=== PATIENT | male | born 1965 | race African-American/Black ===

== ENCOUNTER 2018-08-24 06:11 | Emergency (ER) | payer MEDICAID, OTHER ==
[~2018-08-24] VITALS: Ht 177.8 cm; Wt 77.1 kg
[2018-08-24 06:18] VITALS: BP 144/100
--- NOTE | 2018-08-24 07:06 | NUR ---
First contact with patient: Discharge instructions discussed with patient, verbalizes understanding. Prescriptions provided to patient with instruction for use. Patient ambulates with steady gait to discharge desk in no acute distress.
== END 2018-08-24 07:14 | disposition home or self-care (01) ==
LOC: ED 06:30
DX: S46.812A Strain of other muscles, fascia and tendons at shoulder and upper arm level, left arm, initial encounter (principal); Z76.0 Encounter for issue of repeat prescription; X58.XXXA Exposure to other specified factors, initial encounter; Y93.89 Activity, other specified; Y92.89 Other specified places as the place of occurrence of the external cause; Y99.8 Other external cause status
CPT/HCPCS: 99283

== ENCOUNTER 2018-08-25 04:11 | Emergency (ER) | payer MEDICAID, OTHER ==
[~2018-08-25] VITALS: Ht 177.8 cm; Wt 81.0 kg
[2018-08-25 04:14] VITALS: BP 154/78
[2018-08-25] MEDS ORDERED: LISINOPRIL 20 MG TABLET ONE (04:54)
--- NOTE | 2018-08-25 04:56 | NUR ---
PT MEDICATED PER JUN. PT STATING HE WANTS TO LEAVE AND WANTS A TAXI VOUCHER TO THE [facility].
[2018-08-25] MEDS ORDERED: LISINOPRIL 20 MG TABLET PO ONE (05:00)
--- NOTE | 2018-08-25 05:26 | NUR ---
PT D/C WITH D/C SUMMARY. ALL QUESTIONS ANSWERED. PT PROVIDED TAXI VOUCHER TO [facility]. PT WALKS TO REGISTRATION DESK WITH STEADY GAIT AND DENIES ANY OTHER NEEDS PERTAINING TO THIS VISIT.
== END 2018-08-25 05:29 | disposition home or self-care (01) ==
LOC: ED 05:00
DX: I10 Essential (primary) hypertension (principal); Z76.0 Encounter for issue of repeat prescription; Z59.0 Homelessness; F20.9 Schizophrenia, unspecified; F41.1 Generalized anxiety disorder; Z79.899 Other long term (current) drug therapy; F17.200 Nicotine dependence, unspecified, uncomplicated
CPT/HCPCS: 99283

== ENCOUNTER 2018-08-25 16:48 | Inpatient (IN) | payer MEDICAID, OTHER ==
[~2018-08-25] VITALS: Ht 175.3 cm; Wt 75.0 kg
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
[2018-08-25 17:30] LABS: BASOPHILS # (AUTO) 0.02 x10^3/uL (0-0.1); BASOPHILS % (AUTO) 0 % (0-1); EOSINOPHILS # (AUTO) 0.07 x10^3/uL (0-0.4); EOSINOPHILS % (AUTO) 1 % (1-7); LYMPHOCYTES # (AUTO) 2.15 x10^3/uL (1-3.4); LYMPHOCYTES % (AUTO) 31 % (22-44); MD NO; MEAN CORPUSCULAR HEMOGLOBIN 30.9 pg (27.5-34.5); MEAN CORPUSCULAR HGB CONC 34.4 g/dL (33.2-36.2); MEAN CORPUSCULAR VOLUME 89.8 fL (81-97); MEAN PLATELET VOLUME 7.7 fL (7.4-10.4); MONOCYTES # (AUTO) 0.96 x10^3/uL (0.2-0.8); MONOCYTES % (AUTO) 14 % (2-9); NEUTROPHILS # (AUTO) 3.65 x10^3/uL (1.8-6.8); NEUTROPHILS % (AUTO) 53 % (42-75); PLATELET COUNT 204 x10^3/uL (130-400); RED BLOOD COUNT 4.84 x10^6/uL (4.38-5.82)
[2018-08-25 17:41] LABS: ANION GAP 8 mmol/L (5-15); CALCIUM 9.5 mg/dL (8.5-10.1); CHLORIDE 108 mmol/L (98-107)
[2018-08-25 17:46] LABS: SALICYLATE LEVEL < 1.7 mg/dL (2.8-20.0)
[2018-08-25 17:52] LABS: ALANINE AMINOTRANSFERASE 58 U/L (12-78); ALKALINE PHOSPHATASE 89 U/L (45-117); BILIRUBIN,TOTAL 0.6 mg/dL (0.2-1.0); CREATININE 1.41 mg/dL (0.7-1.3); TOTAL PROTEIN 8.1 g/dL (6.4-8.2)
[2018-08-25 17:54] LABS: ACETAMINOPHEN < 2 mcg/mL (10-30)
[2018-08-25 18:04] LABS: AMPHETAMINE SCREEN, URINE Negative (Negative); BARBITURATE SCREEN, URINE Negative (Negative); BENZODIAZEPINE SCREEN, URINE Negative (Negative); CANNABINOID SCREEN, URINE Positive (Negative); COCAINE SCREEN, URINE Negative (Negative); METHADONE SCREEN, URINE Negative (Negative); OPIATE SCREEN, URINE Negative (Negative)
[2018-08-25 18:07] LABS: FREE T4 (FREE THYROXINE) 1.07 ng/dL (0.76-1.46)
--- NOTE | 2018-08-25 18:27 | NUR ---
Provided with meal tray. No other needs.
--- NOTE | 2018-08-25 19:35 | NUR ---
Resting in [facility]. No other needs.
[2018-08-25] MEDS ORDERED: TRAZODONE 50MG TABLET ONE (20:25)
[2018-08-25] MEDS: TRAZODONE 50MG TABLET PO SCH (20:28)
--- NOTE | 2018-08-25 20:31 | NUR ---
Per Audrey from [facility], patient was supposed to transfer from [facility] to [facility] via [facility] today. Neither facility reports knowing why the patient never made it to [facility]. Plan is tohopefully transfer patient to [facility] after they accept him.
--- NOTE | 2018-08-25 20:44 | NUR ---
[facility] CALLED. SPOKE TO KENDRA WHO STATES THAT SHE IS AWARE OF THIS PATIENT BUT NOT SPECIFICS. KENDRA TO MAKE SOME PHONE CALLS AND CALL US BACK WHEN SHE HAS AN ACCEPTING PHYSICIAN.
--- NOTE | 2018-08-25 21:00 | NUR ---
Baron at [facility] calls and states that he spoke with Sruthi at [facility] and she reviewed pt chart and noted that his hold was released there today and that [facility] was cancelled. Pt was released with resources.
--- NOTE | 2018-08-25 21:27 | NUR ---
REPORT FROM ZEINAB HAZEL. PT RESTING IN [facility] W/ EYES OPEN, CALMLY WATCHING TV. ROOM SECURE. NO PERSONAL BELONGINGS NOTED. SITTER PRESENT. POC IS [facility]/ACCEPTANCE.
--- NOTE | 2018-08-25 22:03 | NUR ---
2N RN AT BEDSIDE FOR ASSESSMENT. PT CALM AND COOPERATIVE WITH QUESTIONING
--- NOTE | 2018-08-25 22:19 | NUR ---
PT TRANSFERED TO BY WHEELCHAIR W/ TECHS X2
[2018-08-25 22:31] VITALS: BP 139/92
[2018-08-25 22:56] VITALS: BP 139/92
[2018-08-26 05:11] LABS: ANION GAP 6 mmol/L (5-15); CALCIUM 9.4 mg/dL (8.5-10.1); CHLORIDE 108 mmol/L (98-107); CREATININE 1.29 mg/dL (0.7-1.3)
[2018-08-26 05:12] LABS: BASOPHILS # (AUTO) 0.05 x10^3/uL (0-0.1); BASOPHILS % (AUTO) 1 % (0-1); EOSINOPHILS # (AUTO) 0.11 x10^3/uL (0-0.4); EOSINOPHILS % (AUTO) 2 % (1-7); LYMPHOCYTES # (AUTO) 3.28 x10^3/uL (1-3.4); LYMPHOCYTES % (AUTO) 49 % (22-44); MD NO; MEAN CORPUSCULAR HEMOGLOBIN 30.5 pg (27.5-34.5); MEAN CORPUSCULAR HGB CONC 33.8 g/dL (33.2-36.2); MEAN CORPUSCULAR VOLUME 90.2 fL (81-97); MEAN PLATELET VOLUME 7.9 fL (7.4-10.4); MONOCYTES # (AUTO) 0.79 x10^3/uL (0.2-0.8); MONOCYTES % (AUTO) 12 % (2-9); NEUTROPHILS # (AUTO) 2.41 x10^3/uL (1.8-6.8); NEUTROPHILS % (AUTO) 36 % (42-75); PLATELET COUNT 184 x10^3/uL (130-400); RED BLOOD COUNT 4.63 x10^6/uL (4.38-5.82); RED CELL DISTRIBUTION WIDTH 13.3 % (9.4-14.8)
[2018-08-26 05:14] LABS: HEMOGLOBIN A1C 5.6 % (4.2-6.3)
[2018-08-26 07:45] VITALS: BP 110/79
[2018-08-26] MEDS: LAMOTRIGINE 200 MG TABLET PO SCH (08:31)
[2018-08-26] MEDS: OLANZAPINE 10 MG TABLET PO SCH (08:31)
[2018-08-26] MEDS: LISINOPRIL 20 MG TABLET PO SCH (08:31)
[2018-08-26] MEDS ORDERED: MAGNESIUM HYDROXIDE 8%, 30ML UDC PO PRN (15:00)
[2018-08-26] MEDS: TRAZODONE 50MG TABLET PO SCH (23:09)
[2018-08-26] MEDS: LORazepam 1MG TABLET PO PRN (23:09)
[2018-08-26 23:11] VITALS: BP 114/75
[2018-08-27 07:00] VITALS: BP 117/75
[2018-08-27] MEDS: LAMOTRIGINE 200 MG TABLET PO SCH (08:12)
[2018-08-27] MEDS: OLANZAPINE 10 MG TABLET PO SCH (08:12)
[2018-08-27] MEDS: SENNA/DOCUSATE TABLET PO SCH (08:13)
[2018-08-27] MEDS: LISINOPRIL 20 MG TABLET PO SCH (08:13)
[2018-08-27 19:05] VITALS: BP 122/76
[2018-08-27] MEDS: TRAZODONE 50MG TABLET PO SCH (20:10)
[2018-08-27] MEDS: LORazepam 1MG TABLET PO PRN (20:10)
[2018-08-28 07:40] VITALS: BP 127/80
[2018-08-28] MEDS: LAMOTRIGINE 200 MG TABLET PO SCH (08:00)
[2018-08-28] MEDS: OLANZAPINE 10 MG TABLET PO SCH (08:01)
[2018-08-28] MEDS: LISINOPRIL 20 MG TABLET PO SCH (08:01)
[2018-08-28] MEDS: SENNA/DOCUSATE TABLET PO SCH (08:42)
[2018-08-28 19:08] VITALS: BP 131/78
[2018-08-28] MEDS ORDERED: CLOZAPINE 100 MG TABLET PO SCH (21:00)
[2018-08-28] MEDS: LORazepam 1MG TABLET PO PRN (22:56)
[2018-08-28] MEDS: TRAZODONE 50MG TABLET PO SCH (22:56)
[2018-08-29 08:00] VITALS: BP 120/83
[2018-08-29] MEDS: OLANZAPINE 10 MG TABLET PO SCH (08:09)
[2018-08-29] MEDS: LISINOPRIL 20 MG TABLET PO SCH (08:09)
[2018-08-29] MEDS: LAMOTRIGINE 200 MG TABLET PO SCH (08:09)
[2018-08-29] MEDS: SENNA/DOCUSATE TABLET PO SCH (08:29)
[2018-08-29] MEDS: ACETAMINOPHEN 325 MG TABLET PO PRN (08:34)
[2018-08-29] MEDS: SIMETHICONE 125 MG CHEW TAB PO SCH ×3 (12:28→21:59)
[2018-08-29] MEDS: TRAZODONE 50MG TABLET PO SCH (21:59)
[2018-08-29] MEDS: LORazepam 1MG TABLET PO PRN (22:02)
[2018-08-29 22:10] VITALS: BP 149/96
[2018-08-30 07:15] VITALS: BP 143/88
[2018-08-30] MEDS: SIMETHICONE 125 MG CHEW TAB PO SCH ×4 (07:17→20:13)
[2018-08-30] MEDS: SENNA/DOCUSATE TABLET PO SCH ×2 (07:50→07:57)
[2018-08-30] MEDS: LAMOTRIGINE 200 MG TABLET PO SCH (07:50)
[2018-08-30] MEDS: LISINOPRIL 20 MG TABLET PO SCH (07:50)
[2018-08-30] MEDS: OLANZAPINE 10 MG TABLET PO SCH (07:50)
[2018-08-30] MEDS: ACETAMINOPHEN 325 MG TABLET PO PRN ×2 (07:59→19:12)
[2018-08-30 18:56] VITALS: BP 147/98
[2018-08-30] MEDS: TRAZODONE 50MG TABLET PO SCH (20:13)
[2018-08-31 07:30] VITALS: BP 144/93
[2018-08-31] MEDS: SIMETHICONE 125 MG CHEW TAB PO SCH ×4 (07:30→20:06)
[2018-08-31] MEDS: ACETAMINOPHEN 325 MG TABLET PO PRN (07:34)
[2018-08-31] MEDS: LORazepam 1MG TABLET PO PRN (07:34)
[2018-08-31] MEDS: LISINOPRIL 20 MG TABLET PO SCH (08:14)
[2018-08-31] MEDS: OLANZAPINE 10 MG TABLET PO SCH (08:14)
[2018-08-31] MEDS: LAMOTRIGINE 200 MG TABLET PO SCH (08:14)
[2018-08-31] MEDS: SENNA/DOCUSATE TABLET PO SCH (08:17)
[2018-08-31 12:36] VITALS: BP 126/87
[2018-08-31 18:58] VITALS: BP 124/80
[2018-08-31] MEDS: TRAZODONE 50MG TABLET PO SCH (20:06)
[2018-09-01] MEDS: LORazepam 1MG TABLET PO PRN (01:52)
[2018-09-01] MEDS: SIMETHICONE 125 MG CHEW TAB PO SCH ×4 (07:40→20:38)
[2018-09-01 08:00] VITALS: BP 132/87
[2018-09-01] MEDS: LISINOPRIL 20 MG TABLET PO SCH (08:03)
[2018-09-01] MEDS: OLANZAPINE 10 MG TABLET PO SCH (08:04)
[2018-09-01] MEDS: LAMOTRIGINE 200 MG TABLET PO SCH (08:04)
[2018-09-01] MEDS: SENNA/DOCUSATE TABLET PO SCH (08:05)
[2018-09-01] MEDS: ACETAMINOPHEN 325 MG TABLET PO PRN (08:05)
[2018-09-01 20:16] VITALS: BP 145/102
[2018-09-01] MEDS: TRAZODONE 100MG TABLET PO SCH (20:35)
[2018-09-02] MEDS: LAMOTRIGINE 200 MG TABLET PO SCH (07:44)
[2018-09-02] MEDS: OLANZAPINE 10 MG TABLET PO SCH (07:44)
[2018-09-02] MEDS: LISINOPRIL 20 MG TABLET PO SCH (07:45)
[2018-09-02] MEDS: SIMETHICONE 125 MG CHEW TAB PO SCH ×4 (07:45→20:07)
[2018-09-02] MEDS: SENNA/DOCUSATE TABLET PO SCH (07:45)
[2018-09-02 08:00] VITALS: BP 119/80
[2018-09-02 20:07] VITALS: BP 127/80
[2018-09-02] MEDS: TRAZODONE 100MG TABLET PO SCH (20:07)
[2018-09-02] MEDS: LORazepam 1MG TABLET PO PRN (20:07)
[2018-09-03] MEDS: SIMETHICONE 125 MG CHEW TAB PO SCH ×5 (07:06→21:00)
[2018-09-03] MEDS: OLANZAPINE 10 MG TABLET PO SCH (07:32)
[2018-09-03] MEDS: LISINOPRIL 20 MG TABLET PO SCH (07:32)
[2018-09-03] MEDS: LAMOTRIGINE 200 MG TABLET PO SCH (07:32)
[2018-09-03] MEDS: SENNA/DOCUSATE TABLET PO SCH (07:33)
[2018-09-03 08:00] VITALS: BP 127/93
[2018-09-03 19:40] VITALS: BP 131/85
[2018-09-03] MEDS: LORazepam 1MG TABLET PO PRN (19:59)
[2018-09-03] MEDS: TRAZODONE 100MG TABLET PO SCH (19:59)
[2018-09-04] MEDS: SIMETHICONE 125 MG CHEW TAB PO SCH ×4 (06:29→20:50)
[2018-09-04 07:53] VITALS: BP 125/86
[2018-09-04] MEDS: LISINOPRIL 20 MG TABLET PO SCH (09:00)
[2018-09-04] MEDS: LAMOTRIGINE 200 MG TABLET PO SCH (09:00)
[2018-09-04] MEDS: OLANZAPINE 10 MG TABLET PO SCH (09:00)
[2018-09-04] MEDS: SENNA/DOCUSATE TABLET PO SCH (09:04)
[2018-09-04] MEDS: LORazepam 1MG TABLET PO PRN ×2 (16:47→20:50)
[2018-09-04 19:56] VITALS: BP 126/80
[2018-09-04] MEDS: TRAZODONE 100MG TABLET PO SCH (20:51)
[2018-09-05] MEDS: SIMETHICONE 125 MG CHEW TAB PO SCH ×4 (06:23→20:38)
[2018-09-05 08:00] VITALS: BP 127/90
[2018-09-05] MEDS: OLANZAPINE 10 MG TABLET PO SCH (08:41)
[2018-09-05] MEDS: LISINOPRIL 20 MG TABLET PO SCH (08:41)
[2018-09-05] MEDS: LAMOTRIGINE 200 MG TABLET PO SCH (08:41)
[2018-09-05] MEDS: LORazepam 1MG TABLET PO PRN ×2 (08:56→20:37)
[2018-09-05] MEDS: SENNA/DOCUSATE TABLET PO SCH (09:00)
[2018-09-05 19:07] VITALS: BP 142/94
[2018-09-05] MEDS: TRAZODONE 100MG TABLET PO SCH (20:37)
[2018-09-06] MEDS: SIMETHICONE 125 MG CHEW TAB PO SCH ×4 (07:24→20:32)
[2018-09-06 08:00] VITALS: BP 133/89
[2018-09-06] MEDS: OLANZAPINE 10 MG TABLET PO SCH (09:00)
[2018-09-06] MEDS: LISINOPRIL 20 MG TABLET PO SCH (09:00)
[2018-09-06] MEDS: LORazepam 1MG TABLET PO PRN (09:00)
[2018-09-06] MEDS: LAMOTRIGINE 200 MG TABLET PO SCH (09:00)
[2018-09-06] MEDS: SENNA/DOCUSATE TABLET PO SCH (09:00)
[2018-09-06 19:57] VITALS: BP 132/92
[2018-09-06] MEDS: TRAZODONE 100MG TABLET PO SCH (20:32)
[2018-09-07] MEDS: OLANZAPINE 10 MG TABLET PO SCH (07:44)
[2018-09-07] MEDS: LISINOPRIL 20 MG TABLET PO SCH (07:44)
[2018-09-07] MEDS: SIMETHICONE 125 MG CHEW TAB PO SCH ×4 (07:44→20:41)
[2018-09-07] MEDS: LAMOTRIGINE 200 MG TABLET PO SCH (07:44)
[2018-09-07] MEDS: ACETAMINOPHEN 325 MG TABLET PO PRN (07:48)
[2018-09-07 07:58] VITALS: BP 124/83
[2018-09-07] MEDS: SENNA/DOCUSATE TABLET PO SCH (08:06)
[2018-09-07 19:10] VITALS: BP 130/86
[2018-09-07] MEDS: LORazepam 1MG TABLET PO PRN (20:41)
[2018-09-07] MEDS: TRAZODONE 100MG TABLET PO SCH (20:41)
[2018-09-08] MEDS: LISINOPRIL 20 MG TABLET PO SCH (07:55)
[2018-09-08] MEDS: LAMOTRIGINE 200 MG TABLET PO SCH (07:55)
[2018-09-08] MEDS: SIMETHICONE 125 MG CHEW TAB PO SCH ×4 (07:55→20:08)
[2018-09-08] MEDS: OLANZAPINE 10 MG TABLET PO SCH (07:56)
[2018-09-08 08:00] VITALS: BP 130/88
[2018-09-08] MEDS: SENNA/DOCUSATE TABLET PO SCH (09:02)
[2018-09-08 19:53] VITALS: BP 128/87
[2018-09-08] MEDS: LORazepam 1MG TABLET PO PRN (20:08)
[2018-09-08] MEDS: TRAZODONE 100MG TABLET PO SCH (20:09)
[2018-09-09] MEDS: SIMETHICONE 125 MG CHEW TAB PO SCH ×4 (07:23→20:53)
[2018-09-09 08:00] VITALS: BP 117/79
[2018-09-09] MEDS: LISINOPRIL 20 MG TABLET PO SCH (08:41)
[2018-09-09] MEDS: OLANZAPINE 10 MG TABLET PO SCH (08:41)
[2018-09-09] MEDS: LAMOTRIGINE 200 MG TABLET PO SCH (08:41)
[2018-09-09] MEDS: SENNA/DOCUSATE TABLET PO SCH (08:42)
[2018-09-09] MEDS: LORazepam 1MG TABLET PO PRN ×2 (17:46→20:53)
[2018-09-09 19:15] VITALS: BP 131/93
[2018-09-09] MEDS: TRAZODONE 100MG TABLET PO SCH (20:53)
[2018-09-10] MEDS: SIMETHICONE 125 MG CHEW TAB PO SCH ×4 (06:17→20:05)
[2018-09-10] MEDS: OLANZAPINE 10 MG TABLET PO SCH (07:47)
[2018-09-10] MEDS: LAMOTRIGINE 200 MG TABLET PO SCH (07:47)
[2018-09-10] MEDS: LISINOPRIL 20 MG TABLET PO SCH (07:47)
[2018-09-10 07:50] VITALS: BP 126/89
[2018-09-10] MEDS: SENNA/DOCUSATE TABLET PO SCH (07:56)
[2018-09-10] MEDS: LORazepam 1MG TABLET PO PRN ×2 (16:02→20:05)
[2018-09-10 19:21] VITALS: BP 113/76
[2018-09-10] MEDS: TRAZODONE 100MG TABLET PO SCH (20:05)
[2018-09-11] MEDS: SIMETHICONE 125 MG CHEW TAB PO SCH ×4 (06:02→20:02)
[2018-09-11 07:12] VITALS: BP 120/84
[2018-09-11] MEDS: LISINOPRIL 20 MG TABLET PO SCH (08:08)
[2018-09-11] MEDS: LAMOTRIGINE 200 MG TABLET PO SCH (08:08)
[2018-09-11] MEDS: OLANZAPINE 10 MG TABLET PO SCH (08:09)
[2018-09-11] MEDS: LORazepam 1MG TABLET PO PRN ×2 (08:12→20:02)
[2018-09-11] MEDS: SENNA/DOCUSATE TABLET PO SCH (09:43)
[2018-09-11 19:26] VITALS: BP 121/85
[2018-09-11] MEDS: TRAZODONE 100MG TABLET PO SCH (20:02)
[2018-09-12] MEDS: SIMETHICONE 125 MG CHEW TAB PO SCH ×4 (06:13→20:45)
[2018-09-12 08:05] VITALS: BP_SYST 140; BP_SYST 147; BP_DIAS 101; BP_DIAS 92
[2018-09-12] MEDS: LAMOTRIGINE 200 MG TABLET PO SCH (08:09)
[2018-09-12] MEDS: OLANZAPINE 10 MG TABLET PO SCH (08:09)
[2018-09-12] MEDS: LISINOPRIL 20 MG TABLET PO SCH (08:09)
[2018-09-12] MEDS: LORazepam 1MG TABLET PO PRN ×2 (08:20→17:15)
[2018-09-12] MEDS: SENNA/DOCUSATE TABLET PO SCH (09:00)
[2018-09-12 11:51] VITALS: BP 125/84
[2018-09-12] MEDS: IBUPROFEN 200 MG TABLET PO PRN ×2 (17:15→20:47)
[2018-09-12 19:27] VITALS: BP 128/91
[2018-09-12] MEDS: TRAZODONE 100MG TABLET PO SCH (20:45)
[2018-09-13 07:48] VITALS: BP 137/89
[2018-09-13] MEDS: LAMOTRIGINE 200 MG TABLET PO SCH (07:57)
[2018-09-13] MEDS: OLANZAPINE 10 MG TABLET PO SCH (07:57)
[2018-09-13] MEDS: LISINOPRIL 20 MG TABLET PO SCH (07:58)
[2018-09-13] MEDS: SIMETHICONE 125 MG CHEW TAB PO SCH ×4 (07:58→20:05)
[2018-09-13] MEDS: SENNA/DOCUSATE TABLET PO SCH (08:06)
[2018-09-13] MEDS: IBUPROFEN 200 MG TABLET PO PRN ×2 (08:24→14:17)
[2018-09-13] MEDS: LORazepam 1MG TABLET PO PRN ×2 (14:17→20:05)
[2018-09-13 19:24] VITALS: BP 145/94
[2018-09-13] MEDS: TRAZODONE 100MG TABLET PO SCH (20:05)
[2018-09-13] MEDS: ACETAMINOPHEN 325 MG TABLET PO PRN (20:05)
[2018-09-14] MEDS: SIMETHICONE 125 MG CHEW TAB PO SCH ×4 (06:00→19:30)
[2018-09-14 07:16] VITALS: BP 145/98
[2018-09-14] MEDS: LORazepam 1MG TABLET PO PRN ×2 (07:17→19:30)
[2018-09-14] MEDS: IBUPROFEN 200 MG TABLET PO PRN ×2 (07:17→19:30)
[2018-09-14] MEDS: LAMOTRIGINE 200 MG TABLET PO SCH (08:08)
[2018-09-14] MEDS: OLANZAPINE 10 MG TABLET PO SCH (08:08)
[2018-09-14] MEDS: LISINOPRIL 20 MG TABLET PO SCH (08:08)
[2018-09-14] MEDS: SENNA/DOCUSATE TABLET PO SCH (09:00)
[2018-09-14] MEDS: QUETIAPINE 25MG TABLET PO PRN (19:30)
[2018-09-14 19:34] VITALS: BP 136/91
[2018-09-15] MEDS: SIMETHICONE 125 MG CHEW TAB PO SCH ×4 (04:57→20:04)
[2018-09-15] MEDS: LAMOTRIGINE 200 MG TABLET PO SCH (08:16)
[2018-09-15 08:17] VITALS: BP 137/93
[2018-09-15] MEDS: LISINOPRIL 20 MG TABLET PO SCH (08:17)
[2018-09-15] MEDS: IBUPROFEN 200 MG TABLET PO PRN ×2 (08:18→20:04)
[2018-09-15] MEDS: OLANZAPINE 10 MG TABLET PO SCH (08:18)
[2018-09-15] MEDS: LORazepam 1MG TABLET PO PRN ×2 (08:19→20:03)
[2018-09-15] MEDS: SENNA/DOCUSATE TABLET PO SCH (08:36)
[2018-09-15 19:25] VITALS: BP 138/93
[2018-09-15] MEDS: QUETIAPINE 25MG TABLET PO PRN (20:04)
[2018-09-16] MEDS: OLANZAPINE 10 MG TABLET PO SCH (07:56)
[2018-09-16] MEDS: LAMOTRIGINE 200 MG TABLET PO SCH (07:56)
[2018-09-16] MEDS: LISINOPRIL 20 MG TABLET PO SCH (07:56)
[2018-09-16] MEDS: SIMETHICONE 125 MG CHEW TAB PO SCH ×4 (07:56→20:01)
[2018-09-16 08:00] VITALS: BP 128/88
[2018-09-16] MEDS: SENNA/DOCUSATE TABLET PO SCH (08:36)
[2018-09-16 19:21] VITALS: BP 129/87
[2018-09-16] MEDS: MELATONIN 5 MG TABLET PO SCH (20:01)
[2018-09-16] MEDS: LORazepam 1MG TABLET PO PRN (20:01)
[2018-09-16] MEDS: QUETIAPINE 25MG TABLET PO PRN (20:01)
[2018-09-16] MEDS: IBUPROFEN 200 MG TABLET PO PRN (20:01)
[2018-09-17] MEDS: SIMETHICONE 125 MG CHEW TAB PO SCH ×4 (07:12→20:18)
[2018-09-17] MEDS: SENNA/DOCUSATE TABLET PO SCH (07:28)
[2018-09-17] MEDS: LAMOTRIGINE 200 MG TABLET PO SCH (07:28)
[2018-09-17] MEDS: OLANZAPINE 10 MG TABLET PO SCH (07:28)
[2018-09-17] MEDS: LISINOPRIL 20 MG TABLET PO SCH (07:28)
[2018-09-17] MEDS: LORazepam 1MG TABLET PO PRN ×2 (07:28→20:18)
[2018-09-17 07:33] VITALS: BP 127/83
[2018-09-17 19:53] VITALS: BP 142/91
[2018-09-17] MEDS: QUETIAPINE 25MG TABLET PO PRN (20:18)
[2018-09-17] MEDS: MELATONIN 5 MG TABLET PO SCH (20:19)
[2018-09-17] MEDS: IBUPROFEN 200 MG TABLET PO PRN (20:22)
[2018-09-18 07:09] VITALS: BP 128/91
[2018-09-18] MEDS: LORazepam 1MG TABLET PO PRN ×2 (07:25→20:08)
[2018-09-18] MEDS: LAMOTRIGINE 200 MG TABLET PO SCH (07:25)
[2018-09-18] MEDS: IBUPROFEN 200 MG TABLET PO PRN ×2 (07:25→20:08)
[2018-09-18] MEDS: SIMETHICONE 125 MG CHEW TAB PO SCH ×4 (07:25→20:08)
[2018-09-18] MEDS: SENNA/DOCUSATE TABLET PO SCH (07:26)
[2018-09-18] MEDS: OLANZAPINE 10 MG TABLET PO SCH (07:26)
[2018-09-18] MEDS: LISINOPRIL 20 MG TABLET PO SCH (07:26)
[2018-09-18 19:06] VITALS: BP 138/91
[2018-09-18] MEDS: MELATONIN 5 MG TABLET PO SCH (20:08)
[2018-09-18] MEDS: QUETIAPINE 25MG TABLET PO PRN (20:08)
[2018-09-19] MEDS: SIMETHICONE 125 MG CHEW TAB PO SCH ×2 (07:35→11:59)
[2018-09-19] MEDS: IBUPROFEN 200 MG TABLET PO PRN (07:36)
[2018-09-19] MEDS: LORazepam 1MG TABLET PO PRN (07:36)
[2018-09-19] MEDS: OLANZAPINE 10 MG TABLET PO SCH (07:48)
[2018-09-19] MEDS: LAMOTRIGINE 200 MG TABLET PO SCH (07:48)
[2018-09-19] MEDS: LISINOPRIL 20 MG TABLET PO SCH (07:49)
[2018-09-19 08:03] VITALS: BP 123/83
[2018-09-19] MEDS: SENNA/DOCUSATE TABLET PO SCH (09:00)
[2018-09-19] MEDS ORDERED: LAMO200T2 PO (14:04)
[2018-09-19] MEDS ORDERED: OLAN10TA9 PO (14:04)
[2018-09-19] MEDS ORDERED: MELA5TAB19 PO (14:04)
[2018-09-19] MEDS ORDERED: LISI-170 PO (14:04)
[2018-09-19] MEDS ORDERED: QUET25TA7 PO (14:04)
== END 2018-09-19 14:42 | DRG 885 ==
LOC: ED 17:07 → EDIP 18:20 → 2N 22:23
PROVIDERS: ADMIT Internal Medicine; ATTEND Internal Medicine
DX: F20.0 Paranoid schizophrenia (principal); F32.1 Major depressive disorder, single episode, moderate; F17.210 Nicotine dependence, cigarettes, uncomplicated; F41.1 Generalized anxiety disorder; G47.00 Insomnia, unspecified; I12.9 Hypertensive chronic kidney disease with stage 1 through stage 4 chronic kidney disease, or unspecified chronic kidney disease; N18.9 Chronic kidney disease, unspecified; Z59.0 Homelessness; Z79.899 Other long term (current) drug therapy; Z91.14 Patient's other noncompliance with medication regimen
CPT/HCPCS: 36415; 80048; 80053; 80307; 80329; 83036; 84439; 84443; 85025; 93005; 99285; G0378; G0480

== ENCOUNTER 2018-10-05 23:14 | Emergency (ER) | payer MEDICAID ==
[~2018-10-05] VITALS: Ht 177.8 cm; Wt 85.0 kg
[~2018-10-05 23:14] MED LIST: LAMO200T2 PO; LISI-170 PO; MELA5TAB19 PO; OLAN10TA9 PO; QUET25TA7 PO
[2018-10-05 23:46] VITALS: BP 136/91
--- NOTE | 2018-10-05 23:47 | NUR ---
at bedside for assessment. Pt presents to ed c/o dizziness and front haxmultiple hours. States minimal water intake today and "i was out in the sun all day." -loc. Neuro appears intact. Monitoring applied. Vss.
--- NOTE | 2018-10-05 23:49 | NUR ---
Pt given water per erp verbal order.
[2018-10-05] MEDS ORDERED: ACETAMINOPHEN 325 MG TABLET ONE ×2 (23:50→23:51)
[2018-10-06] MEDS ORDERED: ACETAMINOPHEN 325 MG TABLET PO ONE
--- NOTE | 2018-10-06 00:36 | NUR ---
given more water per request.
== END 2018-10-06 00:44 | disposition home or self-care (01) ==
LOC: ED 10-06 00:42
DX: R42 Dizziness and giddiness (principal); R53.1 Weakness; R51 Headache; F31.9 Bipolar disorder, unspecified; F41.1 Generalized anxiety disorder; F20.9 Schizophrenia, unspecified; I10 Essential (primary) hypertension; F17.200 Nicotine dependence, unspecified, uncomplicated
CPT/HCPCS: 93005; 99283

== ENCOUNTER 2018-12-04 14:33 | Observation (INO) | payer MEDICAID ==
[~2018-12-04] VITALS: Ht 177.8 cm; Wt 82.4 kg
[2018-12-05 13:07] VITALS: BP 112/74
== END 2018-12-05 14:12 | disposition home or self-care (01) ==
LOC: ED 16:03 → SUATTDRO 16:24 → EDIP 17:06 → 4NOR 18:28 → DCLOUNGE 12-05 14:05
PROVIDERS: ADMIT Internal Medicine; ATTEND Internal Medicine
DX: T67.5XXA Heat exhaustion, unspecified, initial encounter (principal); R00.0 Tachycardia, unspecified; E86.0 Dehydration; R42 Dizziness and giddiness; F17.210 Nicotine dependence, cigarettes, uncomplicated; I10 Essential (primary) hypertension; Z88.1 Allergy status to other antibiotic agents; Z79.899 Other long term (current) drug therapy; X30.XXXA Exposure to excessive natural heat, initial encounter; Y93.9 Activity, unspecified; Y92.9 Unspecified place or not applicable
CPT/HCPCS: 36415; 71045; 80053; 80307; 81003; 82550; 83735; 84100; 84484; 85025; 93005; 96360; 96361; 96372; 99284; G0378; J1650; J7030

== ENCOUNTER 2019-03-05 22:33 | Emergency (ER) | payer MEDICAID ==
[~2019-03-05] VITALS: Ht 177.8 cm; Wt 76.6 kg
[~2019-03-05 22:33] MED LIST changes: +MELA5TAB14 PO; -MELA5TAB19 PO; +NAPR-685 PO
[2019-03-05 22:34] VITALS: BP 170/114
--- NOTE | 2019-03-05 22:38 | NUR ---
BIB [facility] FOR C/O DIZZINESS AND ELI STARTING TODAY "AFTER SEX, I WAS GETTING AT IT!" PT. REPORTS HX OF HTN AND HAS BEEN NON-COMPLIANT WITH LISINOPRIL X 2 MONTHS AFTER RUNNING OUT. PT. DENIES CP. C/O MILD SOB AND DRY COUGH X 2 DAYS. PT. ALSO C/O BLURRED VISION. IV ESTABLISHED EN ROUTE. EKG DONE IMMEDIATELY UPON ARRIVAL TO ED. CONTINUOUS PULSE OX, B/P, AND HEART MONITORS APPLIED. TALL PEAKED T-WAVES NOTED, OTHERWISE NSR. B/P ELEVATED. PT. A&O X 4. RESPIRATIONS EVEN, NON-LABORED. CALL LIGHT IN REACH. ALL SAFETY MEASURES OBSERVED.
--- NOTE | 2019-03-05 22:43 | NUR ---
REPORT TO ZEINAB MISHRA TO ASSUME CARE OF PT.
--- NOTE | 2019-03-05 22:52 | NUR ---
REPORT FROM SUZIE ARRIOLA. PT UP TO BATHROOM.
--- NOTE | 2019-03-05 23:00 | NUR ---
AT BEDSIDE SPEAKING TO PT. PT LEAVING AMA. PT EDUCATED ON NEED TO STAY AND BE ASSESSED. PT REFUSED AND SIGNED PAPERS. PT AMBULATED WITH A STEADY GAIT
== END 2019-03-05 23:05 | disposition left against medical advice (07) ==
LOC: ED 22:59
DX: R42 Dizziness and giddiness (principal); R06.02 Shortness of breath; R05 Cough; I10 Essential (primary) hypertension
CPT/HCPCS: 93005; 99283

== ENCOUNTER 2019-07-13 21:29 | Emergency (ER) | payer MEDICAID ==
[~2019-07-13] VITALS: Ht 182.9 cm; Wt 74.6 kg
[~2019-07-13 21:29] MED LIST changes: -LAMO200T2 PO; +LAMO200T6 PO
[2019-07-13 21:31] VITALS: BP 132/101
[2019-07-13] MEDS ORDERED: IBUPROFEN 800 MG TABLET PO ONE (21:47)
[2019-07-13] MEDS ORDERED: IBUPROFEN 200 MG TABLET ONE (21:48)
[2019-07-13] MEDS ORDERED: IBUPROFEN 600 MG TABLET ONE (21:48)
--- NOTE | 2019-07-13 21:51 | NUR ---
Pt medicated per MAR.
== END 2019-07-13 21:54 | disposition left against medical advice (07) ==
LOC: ED 21:50
DX: J20.8 Acute bronchitis due to other specified organisms (principal); B97.89 Other viral agents as the cause of diseases classified elsewhere; F17.210 Nicotine dependence, cigarettes, uncomplicated
CPT/HCPCS: 99282

== ENCOUNTER 2019-07-21 13:00 | Emergency (ER) | payer MEDICAID ==
[~2019-07-21] VITALS: Ht 165.1 cm; Wt 76.2 kg
[2019-07-21 13:09] VITALS: BP 171/124
[2019-07-21] MEDS ORDERED: LISINOPRIL 20 MG TABLET ONE (14:08)
--- NOTE | 2019-07-21 14:09 | NUR ---
PIT FROM LOBBY, MEDICATED PER ORDERS, PT TOLERATED WELL.
[2019-07-21] MEDS ORDERED: LISINOPRIL 20 MG TABLET PO ONE (14:30)
== END 2019-07-21 14:16 | disposition home or self-care (01) ==
LOC: ED 13:32
DX: I10 Essential (primary) hypertension (principal); Z76.0 Encounter for issue of repeat prescription
CPT/HCPCS: 99283

== ENCOUNTER 2019-07-21 17:33 | Emergency (ER) | payer MEDICAID ==
[~2019-07-21] VITALS: Ht 177.8 cm; Wt 76.0 kg
--- NOTE | 2019-07-21 18:18 | NUR ---
road manager note: Pt to room from lobby.
--- NOTE | 2019-07-21 18:40 | NUR ---
THIS IS A 53 YO MALE WHO PRESENTS TO THE ER C/O DIZZINESS AND WEAKNESS WHILE WALKING. PT REPORTS COUGH SINCE MONDAY. PT ADMITS TO A DRINKING CARVAJAL X 1 WEEK AND USING METH TWICE THIS WEEK AND SMOKING 2 PACK PER DAY. PT AO X 4. SKIN WARM AND DRY. RESP EVEN AND UNLABORED. PT STEADY UPON AMBULATION TO RESTROOM AND BACK TO [facility]. PT ON CONT BP, CARDIAC AND O2 MONITORS. CALL LIGHT WITHIN REACH. WILL CONT TO MONITOR PT.
[2019-07-21 18:47] LABS: BASOPHILS # (AUTO) 0.04 x10^3/uL (0-0.1); BASOPHILS % (AUTO) 0 % (0-1); EOSINOPHILS # (AUTO) 0.02 x10^3/uL (0-0.4); EOSINOPHILS % (AUTO) 0 % (1-7); LYMPHOCYTES # (AUTO) 2.86 x10^3/uL (1-3.4); LYMPHOCYTES % (AUTO) 29 % (22-44); MD SCAN; MEAN CORPUSCULAR HEMOGLOBIN 31.4 pg (27.5-34.5); MEAN CORPUSCULAR HGB CONC 34.4 g/dL (33.2-36.2); MEAN CORPUSCULAR VOLUME 91.2 fL (81-97); MONOCYTES # (AUTO) 0.57 x10^3/uL (0.2-0.8); MONOCYTES % (AUTO) 6 % (2-9); NEUTROPHILS # (AUTO) 6.43 x10^3/uL (1.8-6.8); NEUTROPHILS % (AUTO) 65 % (42-75); PLATELET COUNT 177 x10^3/uL (130-400); RED BLOOD COUNT 4.73 x10^6/uL (4.38-5.82); RED CELL DISTRIBUTION WIDTH 13.5 % (9.4-14.8)
[2019-07-21 18:57] LABS: ALANINE AMINOTRANSFERASE 27 U/L (12-78); ANION GAP 6 mmol/L (5-15); CALCIUM 9.5 mg/dL (8.5-10.1); CHLORIDE 109 mmol/L (98-107); CREATININE 0.98 mg/dL (0.7-1.3)
[2019-07-21 18:59] LABS: ALKALINE PHOSPHATASE 82 U/L (45-117); BILIRUBIN,TOTAL 0.6 mg/dL (0.2-1.0); TOTAL PROTEIN 7.7 g/dL (6.4-8.2)
[2019-07-21 19:04] LABS: AMPHETAMINE SCREEN, URINE Positive (Negative); BARBITURATE SCREEN, URINE Negative (Negative); BENZODIAZEPINE SCREEN, URINE Negative (Negative); CANNABINOID SCREEN, URINE Positive (Negative); COCAINE SCREEN, URINE Negative (Negative); METHADONE SCREEN, URINE Negative (Negative); OPIATE SCREEN, URINE Negative (Negative)
--- NOTE | 2019-07-21 19:30 | NUR ---
MARYA WATKINS AT BEDSIDE FOR RECHECK/EXPLANATION OF RESULTS. PT VERBALIZES UNDERSTANDING. NO ACUTE DISTRESS NOTED. PT AO X 4. SKIN WARM AND DRY. RESP EVEN AND UNLABORED. PT ON CONT BP, CARDIAC AND O2 MONITORS. NSR 80'S NOTED ON [employer]ICE. CALL LIGHT WITHIN REACH. WILL CONT TO MONITOR PT.
[2019-07-21 20:02] VITALS: BP 164/106
== END 2019-07-21 20:11 | disposition home or self-care (01) ==
LOC: ED 18:23
DX: R05 Cough (principal); F15.20 Other stimulant dependence, uncomplicated; I10 Essential (primary) hypertension; F17.200 Nicotine dependence, unspecified, uncomplicated; Z91.14 Patient's other noncompliance with medication regimen
CPT/HCPCS: 36415; 71045; 80053; 80307; 85025; 93005; 99285